=== PATIENT | female | born 1985 | race Caucasian/White ===

== ENCOUNTER 2016-08-21 22:59 | Emergency (ER) | payer SELFPAY ==
[~2016-08-21] VITALS: Ht 157.5 cm; Wt 52.2 kg
[~2016-08-21 22:59] MED LIST: NKM; ZITHROMAX250 MG ORAL
[2016-08-21 23:14] VITALS: BP 128/75
[2016-08-21] MEDS ORDERED: Ketorolac 60mg Inj IM ONE (23:45)
[2016-08-22] MEDS ORDERED: HYDROCODON-ACE1 EA15 ORAL (00:39)
[2016-08-22] MEDS ORDERED: IBUPROFEN600 MG ORAL (00:39)
[2016-08-22] MEDS ORDERED: AMITRIPTYLINE25 MG ORAL (00:39)
--- NOTE | 2016-08-22 00:40 | Emergency Room Report ---
History of Present Illness General Chief Complaint: Headache Source: Patient Present Illness HPI This is a 31-year-old female with a long-standing history of migraine. She said she hasn't seen a Dr. for many years and had no workup. She present with chief complaint of headache is ongoing for a week. No relief with over-the- counter medication. Pain is 8/10. Most left side. She has numbness to the side her face. Also seen squiggly lines. Worse with lights. Allergies: Coded Allergies: No Known Allergies (Unverified , 01/14/13) Patient History Past Medical History: see triage record, old chart reviewed, migraines Past Surgical History: other Pertinent Family History: none Social History: Denies: smoking Last Menstrual Period: July 02 Now: No Immunizations: other Reviewed Nursing Documentation: PMH: Agreed, PSxH: Agreed Nursing Documentation-PMH Past Medical History: No History, Except For Review of Systems Eye: Denies: blurred vision, eye pain ENT: Denies: ear pain, nose congestion, throat swelling Respiratory: Denies: cough, shortness of breath Cardiovascular: Denies: chest pain, palpitations Gastrointestinal: Denies: abdominal pain, diarrhea, nausea, vomiting Musculoskeletal: Denies: back pain, joint pain Skin: Denies: rash Neurological: Reports: headache, Denies: numbness Endocrine: Denies: increased thirst, increased urine Hematologic/Lymphatic: Denies: easy bruising All Other Systems: negative except mentioned in HPI Physical Exam Vital Signs Date Time Temp Pulse Resp B/P Pulse Ox O2 Delivery O2 Flow Rate FiO2 08/21/16 23:06 98.4 72 16 128/75 99 Room Air vitals normal Sp02 EP Interpretation: reviewed, normal General Appearance: well appearing, no apparent distress, alert Head: normocephalic, atraumatic Eyes: bilateral eye EOMI, bilateral eye PERRL ENT: hearing grossly normal, normal pharynx Neck: full range of motion, supple, no meningismus Respiratory: chest non-tender, lungs clear, normal breath sounds Cardiovascular #1: regular rate, rhythm, no murmur Gastrointestinal: normal bowel sounds, non tender, no mass, no organomegaly, no bruit, non-distended Musculoskeletal: back normal, gait/station normal, normal range of motion Psychiatric: mood/affect normal Skin: warm/dry Medical Decision Making Diagnostic Impression: Primary Impression: Headache Qualified Codes: R51 - Headache ER Course Patient with headache. Most likely migraine. She hasn't had any workup so I did a CT scan. No neoplastic process. No bleeding. She felt better after medicine. We'll discharge him. CT/MRI/US Diagnostic Results CT/MRI/US Diagnostic Results : Imaging Test Ordered: ct head Impression neg per radiologist. Last Vital Signs Date Time Temp Pulse Resp B/P Pulse Ox O2 Delivery O2 Flow Rate FiO2 08/21/16 23:14 98.4 16 128/75 99 Room Air 08/21/16 23:06 72 Status: improved Disposition: HOME, SELF-CARE Condition: Stable Scripts Amitriptyline HCl (ELAVIL*) 25 Mg Tablet 25 MG ORAL BEDTIME, #30 TAB Prov: SALENA GONCALVES M.D. 08/22/16 Ibuprofen* (MOTRIN*) 600 Mg Tablet 600 MG ORAL THREE TIMES A DAY, #30 TAB 0 Refills Prov: SALENA GONCALVES M.D. 08/22/16 Hydrocodone/Acetaminophen 5-325* (HYDROCODONE/ACETAMINOPHEN 5-325*) 1 Each Tablet 1 TAB ORAL Q6H Y for For Pain, #15 TAB 0 Refills Prov: SALENA GONCALVES M.D. 08/22/16 Referrals: NOT CHOSEN [facility]/,REFERRING (PCP) Patient Instructions: Migraine Headache Additional Instructions: Followup with your DrWilliam in 7 days. You may benefit from a referral to see a neurologist. Return if symptom worsen. SALENA GONCALVES M.D. Aug 22, 2016 00:40
[2016-08-22 00:45] VITALS: BP 128/75
--- NOTE | 2016-08-22 11:33 | Diagnostic Imaging Report ---
Indication: Headache Technique: Contiguous 5 mm thick transaxial imaging of the head obtained in a Siemens Sensation [address] scanner. Soft tissue and bone windows generated. Total Dose length Product (DLP): [address] Dose Index Volume (CTDIvol): 70.38 mGy Comparison: none Findings: The size and configuration of the cortical sulci, basal cisterns, and ventricles are within normal limits for age. There is no mass effect, midline shift, or edema identified. There is no evidence of acute hemorrhage or abnormal intra-axial or extra-axial fluid collections. The bones and soft tissues are unremarkable. Impression: No mass effect, edema or acute bleed. The CT scanner at [facility] is accredited by the [employer] and the scans are performed using dose optimization techniques as appropriate to a performed exam including Automatic Exposure control.
== END 2016-08-22 00:45 | disposition home or self-care (01) ==
LOC: EMR 23:26
DX: R51 Headache (principal)
CPT/HCPCS: 70450; 96372; 99284